=== PATIENT | female | born 1975 | race Caucasian/White ===

== ENCOUNTER 2017-08-28 23:45 | Inpatient (IN) | payer OTHER, BC, MEDICARE ==
[~2017-08-28] VITALS: Ht 157.5 cm; Wt 77.0 kg
[~2017-08-28 23:45] MED LIST: INSULIN; LEVO.05 PO; MORPHINE SULFATE 2 MG/ML INJ IV PUSH PRN; NALOXONE HCL 0.4 MG/ML AMP IV PUSH PRN; ONDANSETRON HCL 4 MG/2 ML VIAL IVP PRN; SIMV40TA PO; SODIUM CHLORIDE 0.9% FLUSH 10 ML FLUSH IV FLUSH PRN
[2017-08-29] VITALS (7 sets, daily range): BP systolic 100–125; BP diastolic 66–73; PULSE 98–107; RESP 16–17; TEMP 95.6–99.8; O2SAT 94–99
[2017-08-29] MEDS: SODIUM CHLOR 0.9% 1000 ML INJ 1,000 ML IV SCH ×3 (00:38→17:14)
[2017-08-29] MEDS ORDERED: METOPROLOL TARTRATE 25 MG TAB PO PRN (00:45)
[2017-08-29] MEDS ORDERED: CHLORHEXIDINE GLUCONATE 2 % 1 PACK (2 CLOTHS) TOPICAL PRN (00:45)
[2017-08-29] MEDS ORDERED: LACTATED RINGER'S 1000 ML IV PRN (00:45)
[2017-08-29] MEDS ORDERED: SODIUM CHLORID 0.9% 500 ML IV PRN (00:45)
[2017-08-29] MEDS ORDERED: POVIDONE IODINE 5% (ANTISEPSIS KIT) 4 APPLICATIONS EACH NARE PRN (00:45)
--- NOTE | 2017-08-29 01:11 | HHI.HP ---
[facility] Non-Staff Admission Diagnosis Diagnoses: Chief Complaint: Abdominal pain Travel History International Travel<30 Days: No Contact w/Intl Traveler <30 Da: No Traveled to Known Affected Are: No History of Present Illness 41-year-old female with a medical history significant for type 1 diabetes, MR brought in by mother with concern for abdominal pain. History obtained from the patient's mother. Mother reports the patient's symptoms started about 4 or 5 days ago. She started to have diarrhea and later on vomiting. She kept pointing to her right hip when her mother asked about pain. Over the past couple of days she has been more bloated and continues to have abdominal discomfort. She stopped eating for the past few days. Her mother believes she lost about 15 pounds over this past few days. Abdominal CT in the emergency room revealed probable acute perforated appendix. General surgery has been consulted for intervention. Review of Systems ROS Limitations: Clinical Condition, Poor Historian Gastrointestinal: COMPLAINS OF: Abdominal pain, Diarrhea, Nausea, Vomiting, Anorexia Past Family Social History Past Medical History Type 1 diabetes MR Hypothyroidism Past Surgical History None Reported Medications Reported Meds & Active Scripts Active Reported [Insulin] Simvastatin 40 Mg Tab 40 Mg PO HS Synthroid (Levothyroxine Sodium) 50 Mcg Tab 50 Mcg PO DAILY Allergies: Coded Allergies: No Known Allergies (Unverified , 08/28/17) Family History Reviewed and found to be noncontributory. Social History No tobacco or alcohol use. Patient lives with her mother. Physical Exam Physical Exam GENERAL: Patient is in no acute distress. She is pleasant. Has MR SKIN: No rashes, ecchymoses or lesions. Cool and dry. HEAD: Atraumatic. Normocephalic. No temporal or scalp tenderness. EYES: Pupils equal round and reactive. Extraocular motions intact. No scleral icterus. No injection or drainage. ENT: Nose without bleeding, purulent drainage or septal hematoma. Throat without erythema, tonsillar hypertrophy or exudate. Uvula midline. Airway patent. NECK: Trachea midline. No JVD or lymphadenopathy. Supple, nontender, no meningeal signs. CARDIOVASCULAR: Regular rate and rhythm without murmurs, gallops, or rubs. RESPIRATORY: Clear to auscultation. Breath sounds equal bilaterally. No wheezes , rales, or rhonchi. GASTROINTESTINAL: Abdomen mildly distended. Could not elicit tenderness to palpation on my exam. MUSCULOSKELETAL: Extremities without clubbing, cyanosis, or edema. No joint tenderness, effusion, or edema noted. No calf tenderness. Negative Homans sign bilaterally. NEUROLOGICAL: Awake and alert. Normal speech. Imaging Abdominal CT report: "There is evidence of extensive inflammatory change and fluid within the periappendiceal region of the right lower quadrant consistent with probable acute perforated appendicitis. There is an extraluminal collection of fluid and air measuring 6.0 x 4.0 cm consistent with probable appendiceal abscess. There is a tiny calcified appendicolith. There is also multiple fluid-filled dilated loops of small bowel suggesting small bowel obstruction related to the inflammatory process in the right lower quadrant. " Caprini VTE Risk Assessment Caprini VTE Risk Assessment: Mod/High Risk (score >= 2) Caprini Risk Assessment Model Point Value = 1 Point Value = 2 Point Value = 3 Point Value = 5 Age 41-60 Minor surgery BMI > 25 kg/m2 Swollen legs Varicose veins or History of unexplained or recurrent spontaneous Oral contraceptives or hormone replacement Sepsis (< 1 month) Serious lung disease, including pneumonia (< 1 month) Abnormal pulmonary function Acute myocardial infarction Congestive heart failure (< 1 month) History of inflammatory bowel disease Medical patient at bed rest Age 61-74 Arthroscopic surgery Major open surgery (> 45 min) Laparoscopic surgery (> 45 min) Malignancy Confined to bed (> 72 hours) Immobilizing plaster cast Central venous access Age >= 75 History of VTE Family history of VTE Factor V Leiden Prothrombin [id number] Lupus anticoagulant Anticardiolipin antibodies Elevated serum homocysteine Heparin-induced thrombocytopenia Other congenital or acquired thrombophilia Stroke (< 1 month) Elective arthroplasty Hip, pelvis, or leg fracture Acute spinal cord injury (< 1 month) Prophylaxis Regimen Total Risk Factor Score Risk Level Prophylaxis Regimen 0-1 Low Early ambulation 2 Moderate Order ONE of the following: *Sequential Compression Device (SCD) *Heparin 5000 units SQ BID 3-4 Higher Order ONE of the following medications: *Heparin 5000 units SQ TID *Enoxaparin/Lovenox 40 mg SQ daily (WT < 150 kg, CrCl > 30 mL/min) *Enoxaparin/Lovenox 30 mg SQ daily (WT < 150 kg, CrCl > 10-29 mL/min) *Enoxaparin/Lovenox 30 mg SQ BID (WT < 150 kg, CrCl > 30 mL/min) AND/OR *Sequential Compression Device (SCD) 5 or more Highest Order ONE of the following medications: *Heparin 5000 units SQ TID (Preferred with Epidurals) *Enoxaparin/Lovenox 40 mg SQ daily (WT < 150 kg, CrCl > 30 mL/min) *Enoxaparin/Lovenox 30 mg SQ daily (WT < 150 kg, CrCl > 10-29 mL/min) *Enoxaparin/Lovenox 30 mg SQ BID (WT < 150 kg, CrCl > 30 mL/min) AND *Sequential Compression Device (SCD) Assessment and Plan Problem List: (1) Perforated appendix ICD Code: K35.2 - Acute appendicitis with generalized peritonitis Plan: Continue broad-spectrum antibiotics with Zosyn General surgery consulted Pain management IV fluid Keep n.p.o. (2) Type 1 diabetes mellitus ICD Code: E10.9 - Type 1 diabetes mellitus without complications Plan: Sliding scale insulin with Accu-Cheks (3) Mental retardation ICD Code: F79 - Unspecified intellectual disabilities Plan: Pleasant during my evaluation. Physician Certification 2 Midnight Certification Type: Admission for Inpatient Services Order for Inpatient Services The services are ordered in accordance with Medicare regulations or non- Medicare payer requirements, as applicable. In the case of services not specified as inpatient-only, they are appropriately provided as inpatient services in accordance with the 2-midnight benchmark. Estimated LOS (days): 3 days is the estimated time the patient will need to remain in the hospital, assuming treatment plan goals are met and no additional complications. Post-Hospital Plan: Home Lucia Mathew MD Aug 29, 2017 01:11
[2017-08-29] MEDS ORDERED: GLUCAGON 1 MG/ML VIAL OTHER PRN (02:15)
[2017-08-29] MEDS ORDERED: DEXTROSE 50% IN WATER 50 ML VIAL(D50) IV PUSH PRN (02:15)
[2017-08-29] MEDS: PIPERACIL-TAZO 4.5 GM PREMIX 100 ML IV SCH ×4 (02:56→21:31)
[2017-08-29 07:34] LABS: AUTOMATED NEUTROPHIL # 11.1 TH/MM3 (1.8-7.7); BASOPHIL # 0.1 TH/MM3 (0-0.2); BASOPHIL % 0.6 % (0.0-2.0); EOSINOPHIL # 0.1 TH/MM3 (0-0.4); EOSINOPHIL % 0.7 % (0.0-4.0); HEMATOCRIT 35.2 % (35.0-46.0); HEMOGLOBIN 11.8 GM/DL (11.6-15.3); LYMPH % 5.5 % (9.0-44.0); LYMPHOCYTE # 0.7 TH/MM3 (1.0-4.8); MEAN CELL VOLUME 89.5 FL (80.0-100.0); MEAN CORPUSCULAR HGB CONC 33.6 % (32.0-36.0); MEAN PLATELET VOLUME 7.5 FL (7.0-11.0); MONO % 7.6 % (0.0-8.0); NEUT % 85.6 % (16.0-70.0); PLATELET COUNT 321 TH/MM3 (150-450); RED BLOOD COUNT 3.94 MIL/MM3 (4.00-5.30); WHITE BLOOD COUNT 12.9 TH/MM3 (4.0-11.0)
--- NOTE | 2017-08-29 07:37 | PD.CONS ---
HPI Consult Requested By Primary Care Physician Non-Staff Past Family Social History Allergies: Coded Allergies: No Known Allergies (Unverified , 08/28/17) Active Ordered Medications Current Medications Medications (Trade) Dose Ordered Sig/Sharita Route Start Time Stop Time Status Last Admin Piperacillin Sod/ Tazobactam Sod 100 ml @ 200 mls/hr Q6H IV 08/29/17 03:00 08/29/17 02:56 Sodium Chloride 1,000 ml @ 100 mls/hr Q10H IV 08/28/17 22:28 08/29/17 00:38 (NS Flush) 2 ml UNSCH PRN IV FLUSH 08/28/17 22:30 (NS Flush) 2 ml BID IV FLUSH 08/29/17 09:00 (Zofran Inj) 4 mg Q6H PRN IVP 08/28/17 22:30 (Narcan Inj) 0.4 mg UNSCH PRN IV PUSH 08/28/17 22:30 (Morphine Inj) 2 mg Q3H PRN IV PUSH 08/28/17 22:45 Lactated Ringer's 1,000 ml @ 30 mls/hr Q24H PRN IV 08/29/17 00:45 09/01/17 00:44 Sodium Chloride 500 ml @ 30 mls/hr [id number] PRN IV 08/29/17 00:45 09/01/17 00:44 (Lopressor) 25 mg RATING OFFICER PRN PO 08/29/17 00:45 09/01/17 00:44 (Betadine 5% Antisepsis Kit) 1 applic RATING OFFICER PRN EACH NARE 08/29/17 00:45 09/01/17 00:44 (Chlorhexidine 2% Cloth) 3 pack RATING OFFICER PRN TOPICAL 08/29/17 00:45 09/01/17 00:44 (D50w (Vial) Inj) 50 ml UNSCH PRN IV PUSH 08/29/17 02:15 (Glucagon Inj) 1 mg UNSCH PRN OTHER 08/29/17 02:15 (NovoLOG SUPPLEMENTAL SCALE) 1 ACHS SLIDING SCALE SQ 08/29/17 08:00 Physical Exam Vital Signs Vital Signs Date Time Temp Pulse Resp B/P (MAP) Pulse Ox O2 Delivery O2 Flow Rate FiO2 08/29/17 04:50 99.0 98 17 104/68 (80) 99 08/29/17 01:30 99.3 98 17 100/68 (79) 99 Laboratory Laboratory Tests Test 08/29/17 07:20 White Blood Count 12.9 Red Blood Count 3.94 Hemoglobin 11.8 Hematocrit 35.2 Mean Corpuscular Volume 89.5 Mean Corpuscular Hemoglobin 30.0 Mean Corpuscular Hemoglobin Concent 33.6 Red Cell Distribution Width 14.0 Platelet Count 321 Mean Platelet Volume 7.5 Neutrophils (%) (Auto) 85.6 Lymphocytes (%) (Auto) 5.5 Monocytes (%) (Auto) 7.6 Eosinophils (%) (Auto) 0.7 Basophils (%) (Auto) 0.6 Neutrophils # (Auto) 11.1 Lymphocytes # (Auto) 0.7 Monocytes # (Auto) 1.0 Eosinophils # (Auto) 0.1 Basophils # (Auto) 0.1 CBC Comment DIFF FINAL Differential Comment Result Diagram: 08/29/17 0720 Assessment and Plan Assessment and Plan Recommend CT guided abscess drainage and nonoperative management at this time. Continue Brent. Tre,Chacorta CORNELIUS Aug 29, 2017 07:37
[2017-08-29] MEDS: INSULIN ASPART SUPPLEMENTAL SCALE SQ SCH ×4 (08:00→21:00)
[2017-08-29 08:08] LABS: ALBUMIN 2.7 GM/DL (3.4-5.0); ALT (GPT) 42 U/L (10-53); AST (GOT) 26 U/L (15-37); BICARBONATE 18.7 MEQ/L (21.0-32.0); BLOOD UREA NITROGEN 15 MG/DL (7-18); CALCIUM 8.1 MG/DL (8.5-10.1); CHLORIDE 112 MEQ/L (98-107); CREATININE 0.66 MG/DL (0.50-1.00); GLOMERULAR FILTRATION RATE 98 ML/MIN (>89); GLUCOSE,RANDOM 132 MG/DL (74-106); SODIUM (NA) 142 MEQ/L (136-145)
[2017-08-29 08:11] LABS: ALKALINE PHOSPHATASE 111 U/L (45-117); TOTAL BILIRUBIN ADULT 0.4 MG/DL (0.2-1.0); TOTAL PROTEIN 6.9 GM/DL (6.4-8.2)
[2017-08-29] MEDS: SODIUM CHLORIDE 0.9% FLUSH 10 ML FLUSH IV FLUSH SCH ×2 (08:18→21:00)
[2017-08-29] MEDS ORDERED: SUCCINYLCHOLINE CHLORIDE 200 MG/10 ML VIAL IV ONE (12:00)
[2017-08-29] MEDS ORDERED: PROPOFOL 200 MG/20 ML AMP IV ONE (12:00)
[2017-08-29] MEDS ORDERED: ROCURONIUM INJ 50 MG/5 ML SYRINGE IV PUSH ONE (12:00)
[2017-08-29] MEDS ORDERED: ONDANSETRON HCL 4 MG/2 ML VIAL IV ONE (12:00)
[2017-08-29] MEDS ORDERED: SODIUM CHLOR 0.9% 1000 ML INJ 1,000 ML IV ONE (12:00)
[2017-08-29] MEDS ORDERED: NEOSTIGMINE 5 MG/5 ML SYRINGE IV PUSH ONE (12:00)
[2017-08-29] MEDS ORDERED: LIDOCAINE HCL 1% PF 5 ML SYRINGE OTHER ONE (12:00)
[2017-08-29] MEDS ORDERED: GLYCOPYRROLATE 1 MG/5 ML SYRINGE IV PUSH ONE (12:00)
[2017-08-29] MEDS ORDERED: LIDOCAINE HCL 1% 20 ML VIAL ONE (12:57)
[2017-08-29] MEDS ORDERED: DO NOT ADM ANY ANTICOAGULANT DRUGS PRN (14:02)
--- NOTE | 2017-08-29 14:27 | RADRPT ---
EXAM DATE/TIME: 08/29/2017 13:22 [place] COMPARISON: No previous studies available for comparison. INDICATIONS : Appendiceal abscess. Anesthesia and pain control was provided by the Anesthesia department. DEVICE(S): 1.) 8 Fr Skater FLUID: Total volume of 20 cc of fluid was removed. Fluid was sent for laboratory ordered studies. MEDICAL HISTORY : Diabetes mellitus type 1. Hypertension. SURGICAL HISTORY : None. ENCOUNTER: Initial ACUITY: 1 day PAIN SCORE: 0/10 LOCATION: Right PROCEDURE: 1.) Conscious sedation with continuous EKG and oximetry monitoring. 2.) EKG and oximetry remained stable throughout the procedure. PROCEDURE : 1. CT guided drainage of the appendiceal abscess with fecallith 2. Conscious sedation with continuous EKG and oximetry monitoring. The risks, benefits and alternatives to the procedure were explained and verbal and written consent w as obtained. Using automated exposure control and adjustment of the mA and/or kV according to patient size, radiation dose was kept as low as reasonably achievable to obtain optimal diagnostic quality i mages. The site was prepped in sterile fashion. Full sterile technique was used, including cap, ma sk, sterile gloves and gown and a large sterile sheet. Hand hygiene and 2% chlorhexidine and/or beta dine/alcohol prep was utilized per protocol for cutaneous antisepsis. The skin and subcutaneous tiss ues were infiltrated with local anesthetic solution. DICOM format image data is available electronic ally for review and comparison. Using CT guidance the prescribed site was localized. Drainage was performed using the prescribed cat heter The patient tolerated the procedure well and there were no complications. Conscious sedation was per formed with the prescribed dosages and duration as above in the presence of an independent trained ra diology nurse to assist in the monitoring of the patient. EKG and oximetry remained stable throughou t the procedure. The patient tolerated the procedure well and there were no complications. The patient was sent to pos t anesthesia recovery in stable condition. CONCLUSION: Uncomplicated CT guided drainage with an 8-Yemeni skater. Catheter was sutured in Material was sent for culture.. Dae Castillo MD FACR on August 29, 2017 at 14:24 Board Certified Radiologist. This report was verified electronically.
[2017-08-30] VITALS (7 sets, daily range): BP systolic 93–124; BP diastolic 51–74; PULSE 93–100; RESP 16–18; TEMP 97.8–99.1; O2SAT 93–97
[2017-08-30] MEDS: PIPERACIL-TAZO 4.5 GM PREMIX 100 ML IV SCH ×4 (03:01→21:00)
[2017-08-30] MEDS: SODIUM CHLOR 0.9% 1000 ML INJ 1,000 ML IV SCH ×2 (03:04→14:14)
[2017-08-30 07:04] LABS: BASOPHIL % 0.4 % (0.0-2.0); EOSINOPHIL # 0.1 TH/MM3 (0-0.4); EOSINOPHIL % 1.1 % (0.0-4.0); HEMATOCRIT 31.4 % (35.0-46.0); HEMOGLOBIN 10.5 GM/DL (11.6-15.3); LYMPH % 9.9 % (9.0-44.0); MEAN CORPUSCULAR HEMOGLOBIN 29.8 PG (27.0-34.0); MEAN CORPUSCULAR HGB CONC 33.5 % (32.0-36.0); MEAN PLATELET VOLUME 7.7 FL (7.0-11.0); MONO % 7.1 % (0.0-8.0); MONOCYTE # 0.7 TH/MM3 (0-0.9); NEUT % 81.5 % (16.0-70.0); PLATELET COUNT 324 TH/MM3 (150-450); RED BLOOD COUNT 3.53 MIL/MM3 (4.00-5.30); RED CELL DISTRIBUTION WIDTH 14.1 % (11.6-17.2); WHITE BLOOD COUNT 9.8 TH/MM3 (4.0-11.0)
[2017-08-30] MEDS: INSULIN ASPART SUPPLEMENTAL SCALE SQ SCH ×4 (08:00→21:00)
[2017-08-30] MEDS: SODIUM CHLORIDE 0.9% FLUSH 10 ML FLUSH IV FLUSH SCH ×2 (08:06→22:37)
[2017-08-30 12:16] LABS: ALBUMIN 2.6 GM/DL (3.4-5.0); AST (GOT) 17 U/L (15-37); BICARBONATE 21.4 MEQ/L (21.0-32.0); BLOOD UREA NITROGEN 9 MG/DL (7-18); CALCIUM 7.8 MG/DL (8.5-10.1); CHLORIDE 112 MEQ/L (98-107); GLOMERULAR FILTRATION RATE 109 ML/MIN (>89); GLUCOSE,RANDOM 167 MG/DL (74-106); MAGNESIUM 1.9 MG/DL (1.5-2.5); SODIUM (NA) 143 MEQ/L (136-145)
[2017-08-30 12:17] LABS: ALT (GPT) 33 U/L (10-53); PHOSPHORUS 1.7 MG/DL (2.5-4.9)
[2017-08-30 12:20] LABS: ALKALINE PHOSPHATASE 95 U/L (45-117); TOTAL BILIRUBIN ADULT 0.3 MG/DL (0.2-1.0); TOTAL PROTEIN 6.2 GM/DL (6.4-8.2)
--- NOTE | 2017-08-30 12:43 | HHI.PR ---
Subjective Remarks Due to mental condition patient has difficulty expressing herself As per mother patient having green diarrhea. Afebrile. Mother states this am patient was very sleepy. Objective Vitals Vital Signs Date Time Temp Pulse Resp B/P (MAP) Pulse Ox O2 Delivery O2 Flow Rate FiO2 08/30/17 12:00 98.0 96 17 124/70 (88) 93 08/30/17 10:03 93 08/30/17 08:00 97.8 99 17 122/67 (85) 93 08/30/17 04:00 99.1 93 18 121/63 (82) 95 08/30/17 00:00 99.1 100 16 93/51 (65) 97 08/29/17 20:00 99.8 98 16 125/70 (88) 94 08/29/17 16:00 97.5 101 17 112/66 (81) 96 08/29/17 15:00 94 Nasal Cannula 2.00 08/29/17 14:30 98.6 94 17 112/67 (82) 96 Nasal Cannula 2 08/29/17 14:15 96 18 111/61 (78) 96 Nasal Cannula 2 08/29/17 14:02 98.6 104 20 109/58 (75) 98 Nasal Cannula 2 I/O 08/29/17 08/29/17 08/29/17 08/30/17 08/30/17 08/30/17 07:00 15:00 23:00 07:00 15:00 23:00 Intake Total 0 ml 1100 ml 200 ml 2330 ml Output Total 1 ml 30 ml Balance 0 ml 1100 ml 199 ml 2300 ml Intake Oral 0 ml 0 ml 0 ml 0 ml IV Total 1100 ml 200 ml 2330 ml Output Urine Total 1 ml Drainage Total 30 ml # Voids 2 5 1 2 # Bowel Movements 1 0 1 0 Result Diagram: 08/30/17 0454 08/30/17 1107 Imaging Last Impressions Abscess Drainage CT 08/29/17 0000 Signed Impressions: Service Date/Time: Tuesday, August 29, 2017 13:22 - CONCLUSION: Uncomplicated CT guided drainage with an 8-Romanian skater. Catheter was sutured in Material was sent for culture.. Dae Castillo MD FACR Objective Remarks AAOx3 NAD Clear lungs BL S1S2 RRR abdomen mildly distended, mildly tender to papation near postsurgical area. BS ( +) no edema in extremities Procedures CT guided abscess drainage Medications and IVs Current Medications Medications (Trade) Dose Ordered Sig/Sharita Route Start Time Stop Time Status Last Admin Piperacillin Sod/ Tazobactam Sod 100 ml @ 200 mls/hr Q6H IV 08/29/17 03:00 08/30/17 08:06 Sodium Chloride 1,000 ml @ 100 mls/hr Q10H IV 08/28/17 22:28 08/30/17 03:04 (NS Flush) 2 ml UNSCH PRN IV FLUSH 08/28/17 22:30 (NS Flush) 2 ml BID IV FLUSH 08/29/17 09:00 08/29/17 08:18 (Zofran Inj) 4 mg Q6H PRN IVP 08/28/17 22:30 (Narcan Inj) 0.4 mg UNSCH PRN IV PUSH 08/28/17 22:30 (Morphine Inj) 2 mg Q3H PRN IV PUSH 08/28/17 22:45 Lactated Ringer's 1,000 ml @ 30 mls/hr Q24H PRN IV 08/29/17 00:45 09/01/17 00:44 Sodium Chloride 500 ml @ 30 mls/hr [id number] PRN IV 08/29/17 00:45 09/01/17 00:44 (Lopressor) 25 mg SAFETY GROOVING MACHINE OPERATOR PRN PO 08/29/17 00:45 09/01/17 00:44 (Betadine 5% Antisepsis Kit) 1 applic SAFETY GROOVING MACHINE OPERATOR PRN EACH NARE 08/29/17 00:45 09/01/17 00:44 (Chlorhexidine 2% Cloth) 3 pack SAFETY GROOVING MACHINE OPERATOR PRN TOPICAL 08/29/17 00:45 09/01/17 00:44 (D50w (Vial) Inj) 50 ml UNSCH PRN IV PUSH 08/29/17 02:15 (Glucagon Inj) 1 mg UNSCH PRN OTHER 08/29/17 02:15 (NovoLOG SUPPLEMENTAL SCALE) 1 ACHS SLIDING SCALE SQ 08/29/17 08:00 Miscellaneous Information ALL NURSING DEPARTME... UNSCH PRN .XX 08/29/17 14:02 08/30/17 14:01 (KCl) 50 meq ONCE ONCE PO 08/30/17 12:45 08/30/17 12:46 UNV A/P Problem List: (1) Perforated appendix ICD Code: K35.2 - Acute appendicitis with generalized peritonitis Plan: Continue broad-spectrum antibiotics with Zosyn Pain management IV fluid Patient currently on the diabetic diet. Seems to be tolerating it. Management as per general surgery. (2) Type 1 diabetes mellitus ICD Code: E10.9 - Type 1 diabetes mellitus without complications Plan: Sliding scale insulin with Accu-Cheks (3) Mental retardation ICD Code: F79 - Unspecified intellectual disabilities Plan: Pleasant during my evaluation. (4) Diarrhea ICD Code: R19.7 - Diarrhea, unspecified Plan: Check stool for C. difficile PCR to rule out C. difficile infection. (5) Hypothyroidism ICD Code: E03.9 - Hypothyroidism, unspecified Plan: Resume levothyroxine. (6) Hyperlipidemia ICD Code: E78.5 - Hyperlipidemia, unspecified Plan: Resume statin, check fasting lipid profile. Assessment and Plan DVT prophylaxis: SCDs, chemoprophylaxis as soon as the patient is cleared to have it by general surgery. Discharge Planning Discharge pending clinical improvement. General surgery clearance. Problem Qualifiers (1) Diarrhea: Qualified Codes: R19.7 - Diarrhea, unspecified Raul Duncan MD Aug 30, 2017 12:43
[2017-08-30] MEDS ORDERED: POTASSIUM CHLORIDE 10 MEQ CONTROLLED RELEASE TAB PO ONE (12:45)
[2017-08-30] MEDS: LEVOTHYROXINE SODIUM 50 MCG TAB PO SCH (14:13)
[2017-08-30] MEDS: PRAVASTATIN SOD 80 MG TAB PO SCH (22:36)
[2017-08-31] VITALS: BP 141/62; PULSE 96; RESP 16; TEMP 99.2; O2SAT 94
[2017-08-31 04:00] VITALS: BP 136/73; PULSE 95; RESP 18; TEMP 97.5; O2SAT 95
[2017-08-31] MEDS: PIPERACIL-TAZO 4.5 GM PREMIX 100 ML IV SCH ×4 (04:00→21:00)
[2017-08-31] MEDS: SODIUM CHLOR 0.9% 1000 ML INJ 1,000 ML IV SCH ×2 (04:01→08:51)
[2017-08-31] MEDS: LEVOTHYROXINE SODIUM 50 MCG TAB PO SCH (04:48)
[2017-08-31 08:00] VITALS: BP 119/75; PULSE 93; RESP 18; TEMP 97.7; O2SAT 94
[2017-08-31] MEDS: INSULIN ASPART SUPPLEMENTAL SCALE SQ SCH ×4 (08:00→21:00)
[2017-08-31] MEDS: SODIUM CHLORIDE 0.9% FLUSH 10 ML FLUSH IV FLUSH SCH (08:51)
--- NOTE | 2017-08-31 11:46 | HHI.PR ---
Subjective Subjective Notes pt sitting in chair pos diarrhea Objective Vitals/I&O Vital Signs Date Time Temp Pulse Resp B/P (MAP) Pulse Ox O2 Delivery O2 Flow Rate FiO2 08/31/17 08:00 97.7 93 18 119/75 (90) 94 08/29/17 15:00 Nasal Cannula 2.00 Labs Laboratory Tests Test 08/31/17 04:20 Stool C. difficile Toxin (PCR) NEGATIVE Stl C. difficile Toxin Epiderm 027 PRESUMPTIVE NEGATIVE Date/Time Source Procedure Growth Status 08/29/17 13:30 Abscess Abdomen Gram Stain - Final Resulted 08/29/17 13:30 Abscess Abdomen Wound Culture - Preliminary Resulted Abdomen: Non-tender Extremities: Perfused Narrative Exam drain serous output A/P Assessment and Plan perf appendicitis s/p perc drainage responding to abx rad eval for drain removal in am cont abx Jean Claude Coe MD Aug 31, 2017 11:46
[2017-08-31 11:54] VITALS: BP 122/77; PULSE 91; RESP 18; TEMP 96.4; O2SAT 95
[2017-08-31 13:06] LABS: HEMOGLOBIN 10.8 GM/DL (11.6-15.3); MEAN CELL VOLUME 89.5 FL (80.0-100.0); MEAN CORPUSCULAR HEMOGLOBIN 30.3 PG (27.0-34.0); MEAN CORPUSCULAR HGB CONC 33.8 % (32.0-36.0); MEAN PLATELET VOLUME 8.1 FL (7.0-11.0); PLATELET COUNT 377 TH/MM3 (150-450); RED BLOOD COUNT 3.58 MIL/MM3 (4.00-5.30); WHITE BLOOD COUNT 10.4 TH/MM3 (4.0-11.0)
[2017-08-31 13:28] LABS: BICARBONATE 22.1 MEQ/L (21.0-32.0); CALCIUM 7.9 MG/DL (8.5-10.1); CREATININE 0.5 MG/DL (0.50-1.00); MAGNESIUM 1.9 MG/DL (1.5-2.5); PHOSPHORUS 1.9 MG/DL (2.5-4.9)
--- NOTE | 2017-08-31 14:06 | HHI.PR ---
Subjective Remarks As per patient's mother who is at bedside, she states that the patient still having mucousy diarrhea. Patient is afebrile. Tolerating diet. Denies abdominal pain, nausea vomiting. The patient's mother is requesting to have a second sample sent to rule out C. difficile since she thinks the first sample was not appropriately taken. Objective Vitals Vital Signs Date Time Temp Pulse Resp B/P (MAP) Pulse Ox O2 Delivery O2 Flow Rate FiO2 08/31/17 11:54 96.4 91 18 122/77 (92) 95 08/31/17 08:00 97.7 93 18 119/75 (90) 94 08/31/17 04:00 97.5 95 18 136/73 (94) 95 08/31/17 00:00 99.2 96 16 141/62 (88) 94 08/30/17 19:56 98.9 97 16 116/65 (82) 95 08/30/17 15:49 98.8 95 17 123/74 (90) 95 I/O 08/30/17 08/30/17 08/30/17 08/31/17 08/31/17 08/31/17 07:00 15:00 23:00 07:00 15:00 23:00 Intake Total 2330 ml 1380 ml 480 ml 120 ml Output Total 30 ml 20 ml 30 ml Balance 2300 ml 1380 ml 460 ml 90 ml Intake Oral 0 ml 380 ml 480 ml 120 ml IV Total 2330 ml 1000 ml Drainage Total 30 ml 20 ml 30 ml # Voids 2 1 2 1 # Bowel Movements 0 2 0 1 Result Diagram: 08/31/17 1155 08/31/17 1155 Imaging Last Impressions Abscess Drainage CT 08/29/17 0000 Signed Impressions: Service Date/Time: Tuesday, August 29, 2017 13:22 - CONCLUSION: Uncomplicated CT guided drainage with an 8-Indonesian skater. Catheter was sutured in Material was sent for culture.. Dae Castillo MD FACR Objective Remarks AAOx3 NAD Clear lungs BL S1S2 RRR abdomen mildly distended, mildly tender to papation near postsurgical area. BS ( +) no edema in extremities Procedures CT guided abscess drainage Medications and IVs Current Medications Medications (Trade) Dose Ordered Sig/Sharita Route Start Time Stop Time Status Last Admin Piperacillin Sod/ Tazobactam Sod 100 ml @ 200 mls/hr Q6H IV 08/29/17 03:00 08/31/17 08:50 Sodium Chloride 1,000 ml @ 100 mls/hr Q10H IV 08/28/17 22:28 08/31/17 08:51 (NS Flush) 2 ml UNSCH PRN IV FLUSH 08/28/17 22:30 (NS Flush) 2 ml BID IV FLUSH 08/29/17 09:00 08/30/17 22:37 (Zofran Inj) 4 mg Q6H PRN IVP 08/28/17 22:30 (Narcan Inj) 0.4 mg UNSCH PRN IV PUSH 08/28/17 22:30 (Morphine Inj) 2 mg Q3H PRN IV PUSH 08/28/17 22:45 Lactated Ringer's 1,000 ml @ 30 mls/hr Q24H PRN IV 08/29/17 00:45 09/01/17 00:44 Sodium Chloride 500 ml @ 30 mls/hr [id number] PRN IV 08/29/17 00:45 09/01/17 00:44 (Lopressor) 25 mg ASSOCIATE DENTIST PRN PO 08/29/17 00:45 09/01/17 00:44 (Betadine 5% Antisepsis Kit) 1 applic ASSOCIATE DENTIST PRN EACH NARE 08/29/17 00:45 09/01/17 00:44 (Chlorhexidine 2% Cloth) 3 pack ASSOCIATE DENTIST PRN TOPICAL 08/29/17 00:45 09/01/17 00:44 (D50w (Vial) Inj) 50 ml UNSCH PRN IV PUSH 08/29/17 02:15 (Glucagon Inj) 1 mg UNSCH PRN OTHER 08/29/17 02:15 (NovoLOG SUPPLEMENTAL SCALE) 1 ACHS SLIDING SCALE SQ 08/29/17 08:00 (Synthroid) 50 mcg DAILY@0600 PO 08/30/17 14:00 08/31/17 04:48 (Pravachol) 80 mg HS PO 08/30/17 21:00 08/30/17 22:36 A/P Problem List: (1) Perforated appendix ICD Code: K35.2 - Acute appendicitis with generalized peritonitis (2) Type 1 diabetes mellitus ICD Code: E10.9 - Type 1 diabetes mellitus without complications (3) Mental retardation ICD Code: F79 - Unspecified intellectual disabilities (4) Diarrhea ICD Code: R19.7 - Diarrhea, unspecified (5) Hypothyroidism ICD Code: E03.9 - Hypothyroidism, unspecified (6) Hyperlipidemia ICD Code: E78.5 - Hyperlipidemia, unspecified (7) Hypokalemia ICD Code: E87.6 - Hypokalemia Plan: Likely secondary to decreased oral intake. Replaced orally with potassium chloride. Hypokalemia now resolved. Continue to monitor BMP and replace as needed. (8) Hypophosphatemia ICD Code: E83.39 - Other disorders of phosphorus metabolism Plan: Likely secondary to decreased oral intake. I will start the patient on Neutra-Phos. Assessment and Plan (1) Perforated appendix ICD Code: K35.2 - Acute appendicitis with generalized peritonitis Plan: Continue broad-spectrum antibiotics with Zosyn Pain management Patient currently on the diabetic diet. Seems to be tolerating it. Management as per general surgery. 3/4 DC IV fluids (2) Type 1 diabetes mellitus ICD Code: E10.9 - Type 1 diabetes mellitus without complications Plan: Sliding scale insulin with Accu-Cheks Blood sugars stable. (3) Mental retardation ICD Code: F79 - Unspecified intellectual disabilities Plan: Pleasant during my evaluation. (4) Diarrhea ICD Code: R19.7 - Diarrhea, unspecified Plan: C. difficile toxin PCR negative. However will repeat the test upon family 's request. I will also send other stool studies for WBCs and culture given the patient allegedly had diarrhea prior to being admitted to the hospital. (5) Hypothyroidism ICD Code: E03.9 - Hypothyroidism, unspecified Plan: Continue levothyroxine. Seems stable. Check TSH and free T4. (6) Hyperlipidemia ICD Code: E78.5 - Hyperlipidemia, unspecified Plan: Continue statin, check fasting lipid profile. Assessment and Plan DVT prophylaxis: SCDs, chemoprophylaxis as soon as the patient is cleared to have it by general surgery. Discharge Planning Discharge pending clinical improvement. General surgery clearance. Problem Qualifiers (1) Diarrhea: Qualified Codes: R19.7 - Diarrhea, unspecified Raul Duncan MD Aug 31, 2017 14:06
[2017-08-31 16:00] VITALS: BP 112/80; PULSE 91; RESP 18; TEMP 95.8; O2SAT 97
[2017-08-31] MEDS: PRAVASTATIN SOD 80 MG TAB PO SCH (21:00)
[2017-08-31 23:30] VITALS: BP 131/86; PULSE 94; RESP 16; TEMP 96.5; O2SAT 97
[2017-09-01] MEDS: PIPERACIL-TAZO 4.5 GM PREMIX 100 ML IV SCH ×5 (01:00→20:58)
[2017-09-01] MEDS: SODIUM CHLORIDE 0.9% FLUSH 10 ML FLUSH IV FLUSH SCH ×3 (01:51→20:52)
[2017-09-01] MEDS: POTASSIUM PHOSPHATE/SODIUM PHOSPHATE 250 MG TAB PO SCH ×4 (01:52→20:52)
[2017-09-01 04:00] VITALS: BP 123/65; PULSE 91; RESP 15; TEMP 98.5; O2SAT 94
[2017-09-01] MEDS: INSULIN ASPART SUPPLEMENTAL SCALE SQ SCH ×4 (07:12→20:52)
[2017-09-01] MEDS: LEVOTHYROXINE SODIUM 50 MCG TAB PO SCH (07:14)
[2017-09-01 08:00] VITALS: BP 127/67; PULSE 85; RESP 16; TEMP 96.7; O2SAT 94
--- NOTE | 2017-09-01 11:34 | HHI.PR ---
Subjective Subjective Notes She has a decreased appetite. Continues to have diarrhea and repeat c dif is pending. Denies abdominal pain. Objective Vitals/I&O Vital Signs Date Time Temp Pulse Resp B/P (MAP) Pulse Ox O2 Delivery O2 Flow Rate FiO2 09/01/17 08:00 96.7 85 16 127/67 (87) 94 08/29/17 15:00 Nasal Cannula 2.00 Labs Laboratory Tests Test 08/31/17 11:55 09/01/17 00:47 White Blood Count 10.4 Red Blood Count 3.58 Hemoglobin 10.8 Hematocrit 32.0 Mean Corpuscular Volume 89.5 Mean Corpuscular Hemoglobin 30.3 Mean Corpuscular Hemoglobin Concent 33.8 Red Cell Distribution Width 14.0 Platelet Count 377 Mean Platelet Volume 8.1 Blood Urea Nitrogen 10 Creatinine 0.50 Random Glucose 126 Calcium Level 7.9 Phosphorus Level 1.9 Magnesium Level 1.9 Sodium Level 143 Potassium Level 3.5 Chloride Level 113 Carbon Dioxide Level 22.1 Anion Gap 8 Estimat Glomerular Filtration Rate 135 Stool C. difficile Toxin (PCR) NEGATIVE Stl C. difficile Toxin Epiderm 027 PRESUMPTIVE NEGATIVE Date/Time Source Procedure Growth Status 08/31/17 04:20 Stool Stool Cryptosporidium Exam Pending Resulted 08/31/17 04:20 Stool Stool Stool Pus (RAFAT) - Final NO WBC'S SEEN Resulted 08/31/17 04:20 Stool Stool Giardia Antigen (RAFAT) Pending Resulted 08/29/17 13:30 Abscess Abdomen Gram Stain - Final Complete 08/29/17 13:30 Wound Culture - Final Strep Not A,B D Mixed Anaerobes Complete Narrative Exam Sitting up in chair comfortably Abd: obese, mild ttp in RLQ, accordion drain small amt ss output A/P Assessment and Plan 41 yo F with perf appendicitis with abscess s/p IR drain. + diarrhea, decreased appetite. Repeat CT a/p and consider drain removal. Labs in am. Plan for interval appendectomy in about 6 weeks. Chacorta Toledo MD Sep 01, 2017 11:33
[2017-09-01 12:00] VITALS: BP 129/71; PULSE 90; RESP 15; TEMP 96.2; O2SAT 95
--- NOTE | 2017-09-01 12:15 | HHI.PR ---
Subjective Remarks having lunch- up in chair no nuasea or vomtiing no abdominal pain- good po appetite some loose stools per Mom- better though compared to yesterday Objective Vitals Vital Signs Date Time Temp Pulse Resp B/P (MAP) Pulse Ox O2 Delivery O2 Flow Rate FiO2 09/01/17 08:00 96.7 85 16 127/67 (87) 94 09/01/17 04:00 98.5 91 15 123/65 (84) 94 09/01/17 04:00 98.5 91 15 123/65 (84) 94 08/31/17 23:30 96.5 94 16 131/86 (101) 97 08/31/17 16:00 95.8 91 18 112/80 (91) 97 I/O 08/31/17 08/31/17 08/31/17 09/01/17 09/01/17 09/01/17 07:00 15:00 23:00 07:00 15:00 23:00 Intake Total 120 ml 700 ml 400 ml Output Total 30 ml 10 ml 10 ml Balance 90 ml 700 ml 390 ml -10 ml Intake Oral 120 ml 600 ml 400 ml IV Total 100 ml Drainage Total 30 ml 10 ml 10 ml # Voids 1 1 2 2 # Bowel Movements 1 1 1 2 Result Diagram: 08/31/17 1155 08/31/17 1155 Imaging Last Impressions Abscess Drainage CT 08/29/17 0000 Signed Impressions: Service Date/Time: Tuesday, August 29, 2017 13:22 - CONCLUSION: Uncomplicated CT guided drainage with an 8-Serbian skater. Catheter was sutured in Material was sent for culture.. Dae Castillo MD FACR Objective Remarks awake and alert, no distreaa anicteric lungs- no rales regular rhythm abdomen- globularly soft, nontender, drain in place extremities no edema Procedures CT guided abscess drainage A/P Problem List: (1) Perforated appendix ICD Code: K35.2 - Acute appendicitis with generalized peritonitis (2) Type 1 diabetes mellitus ICD Code: E10.9 - Type 1 diabetes mellitus without complications (3) Mental retardation ICD Code: F79 - Unspecified intellectual disabilities (4) Diarrhea ICD Code: R19.7 - Diarrhea, unspecified (5) Hypothyroidism ICD Code: E03.9 - Hypothyroidism, unspecified (6) Hyperlipidemia ICD Code: E78.5 - Hyperlipidemia, unspecified (7) Hypokalemia ICD Code: E87.6 - Hypokalemia (8) Hypophosphatemia ICD Code: E83.39 - Other disorders of phosphorus metabolism Assessment and Plan 41 years old female (1) Perforated appendix S/P PCN drainage Continue broad-spectrum antibiotics with Zosyn General surgery - ff repeat CT of A/P today plan for eventual surgery in 6 weeks (2) Type 1 diabetes mellitus good readings as OP per Mom on Lantus 5 units hs and Novolog 3-5 units tid ac Sliding scale while here History of hypothyroidism -continue on synthroid History of Hyperlipdemia - continue on statins Hypokalemia Hypophosphatemia - replaced - recheck in am Diarrhea- - per Mom- improving - monitor- c diff negative Up and ambulation encouraged Problem Qualifiers (1) Diarrhea: Qualified Codes: R19.7 - Diarrhea, unspecified Wilmer Argaon MD Sep 01, 2017 12:15
--- NOTE | 2017-09-01 15:28 | RADRPT ---
EXAM DATE/TIME: 09/01/2017 14:56 [facility] COMPARISON: CT ABDOMEN & PELVIS W CONTRAST, August 28, 2017, 20:12. INDICATIONS : Abscess, evaluate for drain removal. ORAL CONTRAST: No oral contrast ingested. RADIATION DOSE: 16.94 CTDIvol (mGy) MEDICAL HISTORY : Hypertension. SURGICAL HISTORY : None. ENCOUNTER: Initial ACUITY: 1 day PAIN SCALE: 3/10 LOCATION: Right lower quadrant TECHNIQUE: Volumetric scanning of the abdomen and pelvis was performed. Using automated exposure control and ad justment of the mA and/or kV according to patient size, radiation dose was kept as low as reasonably achievable to obtain optimal diagnostic quality images. DICOM format image data is available electro nically for review and comparison. FINDINGS: LOWER LUNGS: Right basilar atelectasis with associated small effusion LIVER: Homogeneous density without lesion. There is no dilation of the biliary tree. No calcified gallston es. SPLEEN: Normal size without lesion. PANCREAS: Within normal limits. KIDNEYS: Normal in size and shape. There is no mass, stone, or hydronephrosis. ADRENAL GLANDS: Within normal limits. VASCULAR: There is no aortic aneurysm. BOWEL/MESENTERY: [place] loop drainage catheter surrounds the small appendicolith identified previously. The regional flu id collection just inferior to the appendicolith has resolved. There is some pericolonic stranding tr acking down into the right pelvis. ABDOMINAL WALL: Within normal limits. RETROPERITONEUM: There is no lymphadenopathy. BLADDER: No wall thickening or mass. REPRODUCTIVE: 4.4 cm left ovarian cyst, unchanged from prior. INGUINAL: There is no lymphadenopathy or hernia. MUSCULOSKELETAL: Within normal limits for patient age. CONCLUSION: 1. [place] loop catheter at the base of the appendix has successfully drained the previously identified periappendiceal abscess. No residual fluid. Expected pericolonic stranding, however. 2. Small appendicolith persists. 3. Interval development of right basilar atelectatic changes with small associated effusion. 4. Stable 4.4 cm left ovarian cyst. Vicente Irvin MD on September 01, 2017 at 15:23 Board Certified Radiologist. This report was verified electronically.
[2017-09-01 16:00] VITALS: BP 128/70; PULSE 90; RESP 16; TEMP 96.6; O2SAT 95
[2017-09-01 19:52] VITALS: BP 130/77; PULSE 89; RESP 18; TEMP 98; O2SAT 96
[2017-09-01] MEDS: PRAVASTATIN SOD 80 MG TAB PO SCH (20:52)
[2017-09-02] VITALS (7 sets, daily range): BP systolic 113–138; BP diastolic 70–86; PULSE 81–91; RESP 18; TEMP 96–97.5; O2SAT 93–97
[2017-09-02] MEDS: PIPERACIL-TAZO 4.5 GM PREMIX 100 ML IV SCH ×2 (03:08→08:32)
[2017-09-02] MEDS: LEVOTHYROXINE SODIUM 50 MCG TAB PO SCH (05:12)
[2017-09-02] MEDS: POTASSIUM PHOSPHATE/SODIUM PHOSPHATE 250 MG TAB PO SCH ×3 (05:12→20:49)
[2017-09-02] MEDS: INSULIN ASPART SUPPLEMENTAL SCALE SQ SCH ×4 (08:00→20:49)
[2017-09-02] MEDS: SODIUM CHLORIDE 0.9% FLUSH 10 ML FLUSH IV FLUSH SCH ×2 (08:32→20:50)
[2017-09-02 08:34] LABS: AUTOMATED NEUTROPHIL # 8.6 TH/MM3 (1.8-7.7); BASOPHIL % 0.4 % (0.0-2.0); EOSINOPHIL # 0.4 TH/MM3 (0-0.4); EOSINOPHIL % 3.3 % (0.0-4.0); HEMATOCRIT 30.1 % (35.0-46.0); HEMOGLOBIN 10.4 GM/DL (11.6-15.3); LYMPH % 9.8 % (9.0-44.0); LYMPHOCYTE # 1.1 TH/MM3 (1.0-4.8); MEAN CORPUSCULAR HEMOGLOBIN 30.3 PG (27.0-34.0); MEAN CORPUSCULAR HGB CONC 34.5 % (32.0-36.0); MEAN PLATELET VOLUME 7.3 FL (7.0-11.0); MONO % 7.4 % (0.0-8.0); MONOCYTE # 0.8 TH/MM3 (0-0.9); NEUT % 79.1 % (16.0-70.0); PLATELET COUNT 432 TH/MM3 (150-450); RED BLOOD COUNT 3.43 MIL/MM3 (4.00-5.30); RED CELL DISTRIBUTION WIDTH 13.9 % (11.6-17.2); WHITE BLOOD COUNT 10.9 TH/MM3 (4.0-11.0)
[2017-09-02 09:08] LABS: BICARBONATE 24.8 MEQ/L (21.0-32.0); CALCIUM 8.1 MG/DL (8.5-10.1); CREATININE 0.61 MG/DL (0.50-1.00)
[2017-09-02] MEDS ORDERED: METR1TAB76 PO (10:30)
[2017-09-02] MEDS ORDERED: LEVO750T3 PO (10:30)
--- NOTE | 2017-09-02 10:33 | HHI.PR ---
Subjective Subjective Notes She is tolerating diet better today per her mother. Diarrhea also improving. Drain was removed this am by radiology nursing. Objective Vitals/I&O Vital Signs Date Time Temp Pulse Resp B/P (MAP) Pulse Ox O2 Delivery O2 Flow Rate FiO2 09/02/17 07:29 96.4 87 18 130/72 (91) 93 08/29/17 15:00 Nasal Cannula 2.00 Labs Laboratory Tests Test 09/02/17 07:47 White Blood Count 10.9 Red Blood Count 3.43 Hemoglobin 10.4 Hematocrit 30.1 Mean Corpuscular Volume 88.0 Mean Corpuscular Hemoglobin 30.3 Mean Corpuscular Hemoglobin Concent 34.5 Red Cell Distribution Width 13.9 Platelet Count 432 Mean Platelet Volume 7.3 Neutrophils (%) (Auto) 79.1 Lymphocytes (%) (Auto) 9.8 Monocytes (%) (Auto) 7.4 Eosinophils (%) (Auto) 3.3 Basophils (%) (Auto) 0.4 Neutrophils # (Auto) 8.6 Lymphocytes # (Auto) 1.1 Monocytes # (Auto) 0.8 Eosinophils # (Auto) 0.4 Basophils # (Auto) 0.0 CBC Comment DIFF FINAL Differential Comment Blood Urea Nitrogen 7 Creatinine 0.61 Random Glucose 119 Calcium Level 8.1 Sodium Level 144 Potassium Level 3.3 Chloride Level 110 Carbon Dioxide Level 24.8 Anion Gap 9 Estimat Glomerular Filtration Rate 107 Thyroid Stimulating Hormone 3rd Gen 3.080 Date/Time Source Procedure Growth Status 08/31/17 04:20 Stool Stool Cryptosporidium Exam - Final NEGATIVE - NO CRYPTOSPORIDIUM ANTIGEN... Complete 08/31/17 04:20 Stool Stool Stool Pus (RAFAT) - Final NO WBC'S SEEN Complete 08/31/17 04:20 Stool Stool Giardia Antigen (RAFAT) - Final NEGATIVE - NO GIARDIA ANTIGEN DETECTE... Complete 08/29/17 13:30 Abscess Abdomen Gram Stain - Final Complete 08/29/17 13:30 Wound Culture - Final Strep Not A,B D Mixed Anaerobes Complete Narrative Exam Sitting up in chair comfortably Abd: obese, mild ttp in RLQ A/P Assessment and Plan 41 yo F with perf appendicitis with abscess s/p IR drain. Continuing to improve. Drain removed. CT a/p repeated yesterday with some persistent inflammation but abscess has been fully drained. Cont regular diet. Change to PO levaquin and flagyl. Recommend plan for discharge tomorrow if she continues tolerating diet and diarrhea minimal. Will need to f/u with me in one week. Chacorta Toledo MD Sep 02, 2017 10:33
[2017-09-02] MEDS: LEVOFLOXACIN 750 MG TAB PO SCH (12:22)
[2017-09-02] MEDS: metroNIDAZOLE 500 MG TAB PO SCH ×2 (12:40→20:49)
--- NOTE | 2017-09-02 13:31 | HHI.PR ---
Subjective Remarks started eating- tolerating well drain removed up and walking Objective Vitals Vital Signs Date Time Temp Pulse Resp B/P (MAP) Pulse Ox O2 Delivery O2 Flow Rate FiO2 09/02/17 11:33 97.1 86 18 113/70 (84) 94 09/02/17 07:29 96.4 87 18 130/72 (91) 93 09/02/17 05:26 97.5 88 18 126/81 (96) 97 09/02/17 00:16 97.0 91 18 126/76 (93) 95 09/01/17 19:52 98.0 89 18 130/77 (94) 96 09/01/17 16:00 96.6 90 16 128/70 (89) 95 I/O 09/01/17 09/01/17 09/01/17 09/02/17 09/02/17 09/02/17 07:00 15:00 23:00 07:00 15:00 23:00 Intake Total 960 ml 580 ml 580 ml Output Total 10 ml 0 ml 0 ml Balance -10 ml 960 ml 580 ml 580 ml Intake Oral 960 ml 480 ml 480 ml IV Total 100 ml 100 ml Drainage Total 10 ml 0 ml 0 ml # Voids 2 3 3 1 # Bowel Movements 2 0 0 0 Result Diagram: 09/02/17 0747 09/02/17 0747 Imaging Last Impressions Abdomen/Pelvis CT 09/01/17 0000 Signed Impressions: Service Date/Time: Friday, September 01, 2017 14:56 - CONCLUSION: 1. [place] loop catheter at the base of the appendix has successfully drained the previously identified periappendiceal abscess. No residual fluid. Expected pericolonic stranding, however. 2. Small appendicolith persists. 3. Interval development of right basilar atelectatic changes with small associated effusion. 4. Stable 4.4 cm left ovarian cyst. Vicente Irvin MD Abscess Drainage CT 08/29/17 0000 Signed Impressions: Service Date/Time: Tuesday, August 29, 2017 13:22 - CONCLUSION: Uncomplicated CT guided drainage with an 8-Kinyarwanda skater. Catheter was sutured in Material was sent for culture.. Dae Castillo MD FACR Objective Remarks awake and alert, no distreaa anicteric lungs- no rales regular rhythm abdomen- globularly soft, nontender, extremities no edema Procedures CT guided abscess drainage A/P Problem List: (1) Perforated appendix ICD Code: K35.2 - Acute appendicitis with generalized peritonitis (2) Type 1 diabetes mellitus ICD Code: E10.9 - Type 1 diabetes mellitus without complications (3) Mental retardation ICD Code: F79 - Unspecified intellectual disabilities (4) Diarrhea ICD Code: R19.7 - Diarrhea, unspecified (5) Hypothyroidism ICD Code: E03.9 - Hypothyroidism, unspecified (6) Hyperlipidemia ICD Code: E78.5 - Hyperlipidemia, unspecified (7) Hypokalemia ICD Code: E87.6 - Hypokalemia (8) Hypophosphatemia ICD Code: E83.39 - Other disorders of phosphorus metabolism Assessment and Plan 41 years old female Perforated appendix S/P PCN drainage Zosyn- DC- changed to po Levaquin and Flagyl General surgery - ff plan for eventual surgery in 6 weeks Type 1 diabetes mellitus good readings as OP per Mom on Lantus 5 units hs and Novolog 3-5 units tid ac Sliding scale while here History of hypothyroidism -continue on synthroid History of Hyperlipidemia - continue on statins Hypokalemia Hypophosphatemia - monitor and replace accordingly Diarrhea- - per Mom- improving - monitor- c diff negative Up and ambulation encouraged PT consult for deconditioning Problem Qualifiers (1) Diarrhea: Qualified Codes: R19.7 - Diarrhea, unspecified Wilmer Aragon MD Sep 02, 2017 13:31
[2017-09-02] MEDS ORDERED: POTASSIUM CHLORIDE 10 MEQ CONTROLLED RELEASE TAB PO ONE (17:15)
[2017-09-02] MEDS: PRAVASTATIN SOD 80 MG TAB PO SCH (20:49)
[2017-09-03 03:53] VITALS: BP 150/77; PULSE 87; RESP 18; TEMP 98.2; O2SAT 94
[2017-09-03] MEDS: metroNIDAZOLE 500 MG TAB PO SCH ×2 (05:34→13:42)
[2017-09-03] MEDS: LEVOTHYROXINE SODIUM 50 MCG TAB PO SCH (05:34)
[2017-09-03] MEDS: POTASSIUM PHOSPHATE/SODIUM PHOSPHATE 250 MG TAB PO SCH ×2 (05:34→13:42)
[2017-09-03 07:21] VITALS: BP 149/84; PULSE 87; RESP 18; TEMP 97.4; O2SAT 94
[2017-09-03] MEDS: INSULIN ASPART SUPPLEMENTAL SCALE SQ SCH ×2 (08:00→12:00)
[2017-09-03] MEDS: SODIUM CHLORIDE 0.9% FLUSH 10 ML FLUSH IV FLUSH SCH (08:04)
[2017-09-03] MEDS: LEVOFLOXACIN 750 MG TAB PO SCH (11:16)
[2017-09-03 12:00] VITALS: BP 132/87; PULSE 91; RESP 18; TEMP 97; O2SAT 95
[2017-09-03 12:13] LABS: ALBUMIN 2.4 GM/DL (3.4-5.0); ALT (GPT) 15 U/L (10-53); AST (GOT) 13 U/L (15-37); BICARBONATE 27.9 MEQ/L (21.0-32.0); BLOOD UREA NITROGEN 7 MG/DL (7-18); CALCIUM 8.5 MG/DL (8.5-10.1); CHLORIDE 107 MEQ/L (98-107); CREATININE 0.62 MG/DL (0.50-1.00); GLOMERULAR FILTRATION RATE 105 ML/MIN (>89); GLUCOSE,RANDOM 152 MG/DL (74-106); PHOSPHORUS 2.9 MG/DL (2.5-4.9); SODIUM (NA) 141 MEQ/L (136-145)
[2017-09-03 12:15] LABS: ALKALINE PHOSPHATASE 97 U/L (45-117); TOTAL BILIRUBIN ADULT 0.2 MG/DL (0.2-1.0); TOTAL PROTEIN 6.3 GM/DL (6.4-8.2)
--- NOTE | 2017-09-03 12:26 | HHI.PR ---
Subjective Subjective Notes Continuing to tolerate diet pretty well. Loose stools but not dave diarrhea. Overall continuing to improve. Objective Vitals/I&O Vital Signs Date Time Temp Pulse Resp B/P (MAP) Pulse Ox O2 Delivery O2 Flow Rate FiO2 09/03/17 12:00 97.0 91 18 132/87 (102) 95 Labs Laboratory Tests Test 09/03/17 11:35 Blood Urea Nitrogen 7 Creatinine 0.62 Random Glucose 152 Total Protein 6.3 Albumin 2.4 Calcium Level 8.5 Phosphorus Level 2.9 Alkaline Phosphatase 97 Aspartate Amino Transf (AST/SGOT) 13 Alanine Aminotransferase (ALT/SGPT) 15 Total Bilirubin 0.2 Sodium Level 141 Potassium Level 3.5 Chloride Level 107 Carbon Dioxide Level 27.9 Anion Gap 6 Estimat Glomerular Filtration Rate 105 Date/Time Source Procedure Growth Status 08/31/17 04:20 Stool Stool Cryptosporidium Exam - Final NEGATIVE - NO CRYPTOSPORIDIUM ANTIGEN... Complete 08/31/17 04:20 Stool Stool Stool Pus (RAFAT) - Final NO WBC'S SEEN Complete 08/31/17 04:20 Stool Stool Giardia Antigen (RAFAT) - Final NEGATIVE - NO GIARDIA ANTIGEN DETECTE... Complete 08/29/17 13:30 Abscess Abdomen Gram Stain - Final Complete 08/29/17 13:30 Wound Culture - Final Strep Not A,B D Mixed Anaerobes Complete Narrative Exam Sitting up in chair comfortably Abd: obese, nontender A/P Assessment and Plan 41 yo F with perf appendicitis with abscess s/p IR drain. Continuing to improve. Drain removed. CT a/p repeated yesterday with some persistent inflammation but abscess has been fully drained. She continues to improve. Clear for dc home from my standpoint. Rx for PO antibiotics on chart. F/u in one week. Tre,Chacorta CORNELIUS Sep 03, 2017 12:26
--- NOTE | 2017-09-03 12:27 | HHI.PR ---
Subjective Remarks dojng great good po no nausea no pain complaints Objective Vitals Vital Signs Date Time Temp Pulse Resp B/P (MAP) Pulse Ox O2 Delivery O2 Flow Rate FiO2 09/03/17 12:00 97.0 91 18 132/87 (102) 95 09/03/17 07:21 97.4 87 18 149/84 (105) 94 09/03/17 03:53 98.2 87 18 150/77 (101) 94 09/02/17 23:50 96.6 81 18 131/74 (93) 97 09/02/17 20:34 96.7 89 18 138/81 (100) 95 09/02/17 15:41 96.0 90 18 113/86 (95) 97 I/O 09/02/17 09/02/17 09/02/17 09/03/17 09/03/17 09/03/17 07:00 15:00 23:00 07:00 15:00 23:00 Intake Total 580 ml 720 ml 480 ml 480 ml Output Total 0 ml Balance 580 ml 720 ml 480 ml 480 ml Intake Oral 480 ml 720 ml 480 ml 480 ml IV Total 100 ml Drainage Total 0 ml # Voids 1 4 2 2 # Bowel Movements 0 0 0 1 Result Diagram: 09/02/17 0747 09/03/17 1135 Imaging Last Impressions Abdomen/Pelvis CT 09/01/17 0000 Signed Impressions: Service Date/Time: Friday, September 01, 2017 14:56 - CONCLUSION: 1. [place] loop catheter at the base of the appendix has successfully drained the previously identified periappendiceal abscess. No residual fluid. Expected pericolonic stranding, however. 2. Small appendicolith persists. 3. Interval development of right basilar atelectatic changes with small associated effusion. 4. Stable 4.4 cm left ovarian cyst. Vicente Irvin MD Abscess Drainage CT 08/29/17 0000 Signed Impressions: Service Date/Time: Tuesday, August 29, 2017 13:22 - CONCLUSION: Uncomplicated CT guided drainage with an 8-Turkmen skater. Catheter was sutured in Material was sent for culture.. Dae Castillo MD FACR Objective Remarks awake and alert, no distreaa anicteric lungs- no rales regular rhythm abdomen- globularly soft, nontender, extremities no edema Procedures CT guided abscess drainage A/P Problem List: (1) Perforated appendix ICD Code: K35.2 - Acute appendicitis with generalized peritonitis (2) Type 1 diabetes mellitus ICD Code: E10.9 - Type 1 diabetes mellitus without complications (3) Mental retardation ICD Code: F79 - Unspecified intellectual disabilities (4) Diarrhea ICD Code: R19.7 - Diarrhea, unspecified (5) Hypothyroidism ICD Code: E03.9 - Hypothyroidism, unspecified (6) Hyperlipidemia ICD Code: E78.5 - Hyperlipidemia, unspecified (7) Hypokalemia ICD Code: E87.6 - Hypokalemia (8) Hypophosphatemia ICD Code: E83.39 - Other disorders of phosphorus metabolism Assessment and Plan 41 years old female Perforated appendix S/P PCN drainage Zosyn- DC- changed to po Levaquin and Flagyl General surgery - ff plan for eventual surgery in 6 weeks cleared for DC home Type 1 diabetes mellitus good readings as OP per Mom on Lantus 5 units hs and Novolog 3-5 units tid ac Sliding scale while here History of hypothyroidism -continue on synthroid History of Hyperlipidemia - continue on statins Hypokalemia Hypophosphatemia - monitor and replace accordingly Diarrhea- - per Mom- improving - monitor- c diff negative Up and ambulation encouraged PT consult for deconditioning DC today with home health care Problem Qualifiers (1) Diarrhea: Qualified Codes: R19.7 - Diarrhea, unspecified Wilmer Aragon MD Sep 03, 2017 12:27
[2017-09-03] MEDS ORDERED: POTA-163 PO (12:31)
--- NOTE | 2017-09-03 12:51 | HHI.DS ---
Discharge Summary Admission Date Aug 28, 2017 at 23:55 Discharge Date: Sep 03, 2017 Admitting Diagnosis (1) Perforated appendix ICD Code: K35.2 - Acute appendicitis with generalized peritonitis Diagnosis: Principal (2) Type 1 diabetes mellitus ICD Code: E10.9 - Type 1 diabetes mellitus without complications Diagnosis: Secondary (3) Mental retardation ICD Code: F79 - Unspecified intellectual disabilities Diagnosis: Secondary (4) Diarrhea ICD Code: R19.7 - Diarrhea, unspecified Diagnosis: Secondary (5) Hypothyroidism ICD Code: E03.9 - Hypothyroidism, unspecified Diagnosis: Secondary (6) Hyperlipidemia ICD Code: E78.5 - Hyperlipidemia, unspecified Diagnosis: Secondary (7) Hypokalemia ICD Code: E87.6 - Hypokalemia Diagnosis: Secondary (8) Hypophosphatemia ICD Code: E83.39 - Other disorders of phosphorus metabolism Diagnosis: Secondary Procedures CT guided abscess drainage Brief History - From Admission 41-year-old female with a medical history significant for type 1 diabetes, MR brought in by mother with concern for abdominal pain. History obtained from the patient's mother. Mother reports the patient's symptoms started about 4 or 5 days ago. She started to have diarrhea and later on vomiting. She kept pointing to her right hip when her mother asked about pain. Over the past couple of days she has been more bloated and continues to have abdominal discomfort. She stopped eating for the past few days. Her mother believes she lost about 15 pounds over this past few days. Abdominal CT in the emergency room revealed probable acute perforated appendix. General surgery has been consulted for intervention. CBC/BMP: 09/02/17 0747 09/03/17 1135 Significant Findings Laboratory Tests Test 09/01/17 00:47 09/02/17 07:47 09/03/17 11:35 Red Blood Count 3.43 MIL/MM3 (4.00-5.30) Hemoglobin 10.4 GM/DL (11.6-15.3) Hematocrit 30.1 % (35.0-46.0) Neutrophils (%) (Auto) 79.1 % (16.0-70.0) Neutrophils # (Auto) 8.6 TH/MM3 (1.8-7.7) Random Glucose 119 MG/DL (74-106) 152 MG/DL (74-106) Calcium Level 8.1 MG/DL (8.5-10.1) Potassium Level 3.3 MEQ/L (3.5-5.1) Chloride Level 110 MEQ/L (98-107) Total Protein 6.3 GM/DL (6.4-8.2) Albumin 2.4 GM/DL (3.4-5.0) Aspartate Amino Transf (AST/SGOT) 13 U/L (15-37) Imaging Last Impressions Abdomen/Pelvis CT 09/01/17 0000 Signed Impressions: Service Date/Time: Friday, September 01, 2017 14:56 - CONCLUSION: 1. [place] loop catheter at the base of the appendix has successfully drained the previously identified periappendiceal abscess. No residual fluid. Expected pericolonic stranding, however. 2. Small appendicolith persists. 3. Interval development of right basilar atelectatic changes with small associated effusion. 4. Stable 4.4 cm left ovarian cyst. Vicente Irvin MD Abscess Drainage CT 08/29/17 0000 Signed Impressions: Service Date/Time: Tuesday, August 29, 2017 13:22 - CONCLUSION: Uncomplicated CT guided drainage with an 8-Stateless skater. Catheter was sutured in Material was sent for culture.. Dae Castillo MD FACR PE at Discharge awake and alert, no distreaa anicteric lungs- no rales regular rhythm abdomen- globularly soft, nontender, extremities no edema Pt update on day of discharge awake and alert taking po well Hospital Course 41 years old female Perforated appendix S/P PCN drainage Zosyn- DC- changed to po Levaquin and Flagyl General surgery - ff plan for eventual surgery in 6 weeks cleared for DC home Type 1 diabetes mellitus good readings as OP per Mom on Lantus 5 units hs and Novolog 3-5 units tid ac Sliding scale while here History of hypothyroidism -continue on synthroid History of Hyperlipidemia - continue on statins Hypokalemia Hypophosphatemia - monitor and replace accordingly Diarrhea- - per Mom- improving - monitor- c diff negative Up and ambulation encouraged PT consult for deconditioning DC today with home health care Pt Condition on Discharge: Stable Discharge Disposition: Disch w/ Home Health Serv Discharge Time: <= 30 minutes Discharge Instructions DIET: Follow Instructions for: As Tolerated, No Restrictions, Heart Healthy Diet Speech Therapy-Diet Recommends: Regular Activities you can perform: Weight Bearing as Aisha Follow up Referrals: PCP Follow-up - 09/05/17 with Mohamud Salinas - 1 Week with Chacorta Toledo MD New Orders: COMP MET PROF (CMP) - 09/05/17 New Medications: Levofloxacin (Levofloxacin) 750 Mg Tablet 750 MG PO DAILY for Infection, #10 TAB 0 Refills Metronidazole (Metronidazole) 500 Mg Tab 500 MG PO TID for Infection, #30 TAB 0 Refills Potassium Chloride ER (Potassium Chloride ER) 20 Meq Tab 20 MEQ PO DAILY for Electrolyte Replacement for 3 Days, #3 TAB 0 Refills Continued Medications: Levothyroxine (Synthroid) 50 Mcg Tab 50 MCG PO DAILY for Thyroid, #30 TAB 0 Refills Simvastatin (Simvastatin) 40 Mg Tab 40 MG PO HS for Cholesterol Management, #30 TAB 0 Refills Wilmer Aragon MD Sep 03, 2017 12:51
--- NOTE | 2017-09-03 12:53 | HHI.FF ---
Face to Face Verification Diagnosis: (1) Perforated appendix (2) Type 1 diabetes mellitus Home Health Nursing Order: Medical education Signs/symptoms of disease process Wound care and dressing changes I have seen patient Ijeoma Caruso on 09/03/17. My clinical findings support the need for the requested home health care services because: Impaired cognition/judgement I certify that my clinical findings support that this patient is homebound because: Need for psychosocial assistance Wilmer Aragon MD Sep 03, 2017 12:53
[2017-09-03] MEDS ORDERED: FLUCONAZOLE 100 MG TAB PO ONE (14:15)
== END 2017-09-03 15:12 | disposition home health service (06) | DRG 373 ==
LOC: NEDDLT 23:45 → N06B 23:55
PROVIDERS: ADMIT Internal Medicine; ATTEND Internal Medicine
PROC: 0D9J30Z Drainage of Appendix with Drainage Device, Percutaneous Approach (ICD-10-PCS; principal; 2017-08-29)
DX: K35.3 Acute appendicitis with localized peritonitis (principal); E83.39 Other disorders of phosphorus metabolism; E03.9 Hypothyroidism, unspecified; E10.9 Type 1 diabetes mellitus without complications; E78.5 Hyperlipidemia, unspecified; E87.6 Hypokalemia; R63.0 Anorexia; F79 Unspecified intellectual disabilities; Z79.4 Long term (current) use of insulin
CPT/HCPCS: 74176; 74177; 75989; 80048; 80053; 81001; 82948; 83690; 83735; 84100; 84443; 84702; 85025; 85027; 85610; 85730; 86403; 87070; 87086; 87185; 87205; 87328; 87329; 87493; 87506; 96361; 96365; 96375; C1729; J0330; J1815; J2405; J2543; J2710; J7030; Q9967